=== PATIENT | female | born 1965 | race Caucasian/White ===

== ENCOUNTER 2017-11-19 07:55 | Day surgery (SDC) | payer OTHER ==
[~2017-11-19] VITALS: Ht 165.1 cm; Wt 81.2 kg
[~2017-11-19 07:55] MED LIST: BRAIN MIGHT-DH1 EACH PO; CAL-CITRATE PL1 EACH PO; DICL25ER PO; DULO60 PO; MAGOXI400
== END 2017-11-19 22:59 | disposition home or self-care (01) ==
LOC: ORSCMMR 07:55 → ORD 09:00 → ORSCMMR 22:59
PROVIDERS: Internal Medicine Gastroenterology
PROC: 0DBP8ZX Excision of Rectum, Via Natural or Artificial Opening Endoscopic, Diagnostic (ICD-10-PCS; principal; 2017-11-19 09:00)
DX: Z12.11 Encounter for screening for malignant neoplasm of colon (principal); K62.1 Rectal polyp; K64.8 Other hemorrhoids; F32.9 Major depressive disorder, single episode, unspecified; I10 Essential (primary) hypertension; Z79.899 Other long term (current) drug therapy
CPT/HCPCS: 84703; 88305; J7120